=== PATIENT | male | born 1960 | race Caucasian/White ===

== ENCOUNTER → 2020-04-29 10:54 | Outpatient (BNVA) | payer BC, SELFPAY | PROVIDERS: Visit Provider Urology | DX: Z76.89 Persons encountering health services in other specified circumstances (principal) ==

== ENCOUNTER → 2020-10-28 09:41 | Outpatient (BNVA) | payer BC, SELFPAY | PROVIDERS: Visit Provider Urology | DX: R97.20 Elevated prostate specific antigen [PSA] (principal); N40.1 Benign prostatic hyperplasia with lower urinary tract symptoms; R39.12 Poor urinary stream; N13.8 Other obstructive and reflux uropathy; N52.9 Male erectile dysfunction, unspecified | CPT/HCPCS: 51798 ==

== ENCOUNTER → 2021-11-01 10:14 | Outpatient (BNVA) | payer BC, SELFPAY | PROVIDERS: Visit Provider Urology | DX: R97.20 Elevated prostate specific antigen [PSA] (principal); N40.1 Benign prostatic hyperplasia with lower urinary tract symptoms; N13.8 Other obstructive and reflux uropathy; R39.12 Poor urinary stream | CPT/HCPCS: 51798 ==

== ENCOUNTER → 2022-05-05 08:29 | Outpatient (BNVA) | payer BC, SELFPAY | PROVIDERS: Visit Provider Urology | DX: R97.20 Elevated prostate specific antigen [PSA] (principal) ==

== ENCOUNTER → 2022-11-10 13:46 | Outpatient (BNVA) | payer OTHER, SELFPAY | PROVIDERS: Visit Provider Nurse Practitioner Family | DX: N40.1 Benign prostatic hyperplasia with lower urinary tract symptoms (principal); N13.8 Other obstructive and reflux uropathy; R97.20 Elevated prostate specific antigen [PSA]; Z79.899 Other long term (current) drug therapy | CPT/HCPCS: 51798 ==

== ENCOUNTER 2023-03-02 06:06 | Outpatient (REF) | payer OTHER, SELFPAY | END 2023-03-02 06:07 | disposition home or self-care (01) | LOC: HO.LAB 06:06 | PROVIDERS: Visit Provider Urology | DX: R97.20 Elevated prostate specific antigen [PSA] (principal); N40.1 Benign prostatic hyperplasia with lower urinary tract symptoms; N13.8 Other obstructive and reflux uropathy; Z12.5 Encounter for screening for malignant neoplasm of prostate | CPT/HCPCS: 36415; 84153 ==

== ENCOUNTER 2023-03-07 09:29 | Outpatient (AMB) | payer OTHER, SELFPAY ==
--- NOTE | 2023-03-07 09:49 | MHC.OFFVIS ---
Intake Intake Visit Reasons: 4m/labs Intake Note: Patient is present for follow up Elevated PSA/labs (psa 6.70) Urology Medications: Finasteride Blood Thinner: none Disc Pad Grinding Machine Feeder Required: No Accompanied by: Self / Same As Patient Allergies aspirin Allergy (Mild, Verified 03/07/23 18:11) swelling Medication List - Last Reconciled 03/07/23 by KELLEN TamP- amlodipine 2.5 mg PO DAILY atorvastatin 80 mg PO DAILY bisoprolol fumarate 10 mg PO DAILY ezetimibe 10 mg PO DAILY finasteride 5 mg PO DAILY fluoxetine 20 mg PO DAILY levothyroxine 50 mcg PO DAILY metformin ER 2,000 mg PO DAILY pioglitazone 45 mg PO DAILY valsartan 320 mg PO DAILY HPI HPI Comments History of Present Illness Details Flynn is a pleasant 62-year-old male patient. He has a past medical history of hypertension, diabetes, and hypothyroidism. He presents to the office today for follow-up of his elevated PSA and BPH with weak stream. In discussion with the patient today reports to be doing and feeling well. When asked patient reports compliance with finasteride 5 mg daily. Recent PSA results reviewed with the patient today. PSA 03/05--6.7. Discussed at length potential causes for elevated PSA. Discussed elevated PSA in the setting of compliance with 5 mg of finasteride daily. Discussed recommendations for prostate biopsy versus surveillance monitoring. Discussed risks and benefits of surveillance monitoring verses prostate biopsy. He otherwise denies any urinary issues or concerns at this time. He reports to be happy with his current voiding parameters. When asked he denies urinary urgency, urinary frequency, incontinence, nocturia, hematuria, dysuria, foul smelling urine, changes to urinary stream, flank pain, fever, and or chills. RONI offered however deferred. In office urinalysis results reviewed with the patient today. Elevated PSA/Abnormal RONI: He presents for further evaluation of elevated PSA and lower urinary tract symptoms Current management is medication with 5AR Laboratory investigations include 12/30 , a free and total PSA evaluation - 5.5 F 21% 01/30 4.9, 24%, 10/31 PSA 3.4, 05/02 3.3, 11/01 2.1, 11/02 3.1, 05/04 3.5, 11/03 3.4, 03/05--6.7 Imaging investigations include a transrectal ultrasound Good voiding, 70 cc prostate December 2018 Individualized Prostate Cancer Risk Calculator Brother with large prostate and symptoms , 5-10% high risk, Discussed use of 5AR to help differentiate prostate cancer from benign disease. He would like to try this and understands the small risk associated with a delay in diagnosis, Discussion regarding TRUS biopsy performed. Symptoms include 12/30 , incomplete emptying, intermittency, weak stream, and are worsening. - 05/02 - good stream, minimal nocturia, happy with current situation Overall symptoms are moderate. Associated conditions diabetes No dyslipidemia Yes dysuria No erectile dysfunction No hematuria No hypertension No prostatitis No renal insufficieny No urinary retention No urinary tract infections No Therapeutic plan will be to schedule for prostate biospy. [facility] Medical History Enlarged prostate Thyroid disease Nocturia Elevated PSA Review of Systems Const Reports as per HPI Eyes Reports no additional complaints ENT Reports no additional complaints Card Reports as per HPI Resp Reports no additional complaints GI Reports no additional complaints Reports as per HPI Musc Reports no additional complaints Neuro Reports no additional complaints Psych Reports no additional complaints Endo Reports as per HPI Fer/Lymph Reports no additional complaints Aller/Immun Reports no additional complaints Physical Exam Const General: cooperative, comfortable, no acute distress, well developed, alert and awake Orientation/consciousness: patient oriented x3 HEENT Head: Yes normal to inspection, Yes normocephalic and Yes atraumatic Ears: hearing grossly normal bilaterally Eyes General: appearance normal, both eyes and all related structures Neck Neck: Yes normal visual inspection and Yes trachea midline Chest Chest palpation & inspection: normal inspection of the chest Resp Effort & Inspection: normal respiratory effort and able to speak in complete sentences Cardio Rate: regular rate GI Inspection: Yes normal to inspection Rectal Exam - Male: Yes deferred General: Yes no CVA tenderness Back/Spine/Pelvis Back: no CVA tenderness Skin General skin exam: no rashes or lesions noted Neuro General: patient oriented x3 Extrem General: Yes normal to inspection Psych Appearance: grossly normal and well kempt Mental Status: mental status grossly normal Speech and movement: Normal speech and movement present and Clear speech present Affect: normal affect Attitude: cooperative Thought process: Normal thought process present Thought content: Normal thought content present Insight: Fair insight present (Psych) Judgement: Fair judgement present (Psych) Results AMB Urinalysis, Automated UA Leukoctes 0 Zak/uL Last Edit by Ambika Costa on 03/07/23 10:09 UA Nitrite Negative Last Edit by Ambika Costa on 03/07/23 10:09 UA Urobilinogen 0.2 mg/dL Last Edit by Ambika Costa on 03/07/23 10:09 UA Protein 15 mg/dL Last Edit by Ambika Costa on 03/07/23 10:09 UA pH 5.5 Last Edit by Ambika Costa on 03/07/23 10:09 UA Blood 0 Yobani/uL Last Edit by Ambika Costa on 03/07/23 10:09 UA Specific [place] 1.030 Last Edit by Ambika Costa on 03/07/23 10:09 UA Ketone Positive Last Edit by Ambika Costa on 03/07/23 10:09 UA Bilirubin 0 mg/dL Last Edit by Ambika Costa on 03/07/23 10:09 UA Glucose 0 mg/dL Last Edit by Ambika Costa on 03/07/23 10:09 Results Reviewed Results Reviewed: Laboratory Last Values Urine pH (Auto) 5.5 03/07/23 09:51 Specific [place] (Auto) 1.030 03/07/23 09:51 Urine Protein (Auto) 15 mg/dL 03/07/23 09:51 Glucose (UA)(Auto) 0 mg/dL 03/07/23 09:51 Urine Ketones (Auto) Positive 03/07/23 09:51 Urine Blood (Auto) 0 Yobani/uL 03/07/23 09:51 Urine Nitrite (Auto) Negative 03/07/23 09:51 Urine Bilirubin (Auto) 0 mg/dL 03/07/23 09:51 Urine Urobilinogen (Auto) 0.2 mg/dL 03/07/23 09:51 Leukocyte Esterase (Auto) 0 Zak/uL 03/07/23 09:51 Assessment & Plan Assessment & Plan (1) Elevated PSA: Code(s): R97.20 - Elevated prostate specific antigen [PSA] (2) Erectile dysfunction: Code(s): N52.9 - Male erectile dysfunction, unspecified (3) BPH w urinary obs/LUTS: Code(s): N40.1 - Benign prostatic hyperplasia with lower urinary tract symptoms; N13.8 - Other obstructive and reflux uropathy Plan: Plan Risks and benefits regarding trans rectal ultrasound with prostate biopsy were discussed.? Options of continued surveillance, no treatment and biopsy were offered. The risks include but are not limited to, urinary tract infection, sepsis, difficulty urinating, bleeding into the rectum or bladder that requires intervention and transfusion,and failure to diagnose prostate cancer. The patient understands the options and the risks involved. They wish to proceed. Printed information was provided to ensure he remains off anticoagulation for the appropriate length of time. He may require cardiology or PCP clearance.? An antibiotic will be administered prior to, and following the procedure Plan In office urinalysis results reviewed with the patient today. Recent PSA results reviewed with the patient today. Continue finasteride as discussed and prescribed. Discussed at length potential causes for elevated PSA. Discussed at length risks and benefits of surveillance monitoring versus prostate biopsy. Patient denies any bothersome urinary issues or concerns at this time. Patient reports be happy with current voiding parameters. Discussed antibiotics day before, day of, and day after surgical procedure; prescription provided. Will schedule for prostate biopsy with Dr. Azul as discussed Follow-up status post prostate biopsy per Dr. Azul's order; or sooner with any issues, concerns, and or questions. Orders: Orders AMB Urinalysis Automated Today Z13.9 - Encounter for screening, unspecified Patient Instructions: The patient had an opportunity to ask questions regarding the treatment plan. All questions were answered. Physical exam, labs, and imaging were discussed and reviewed in detail. As well as risks, benefits, and discussion of treatment choices. No major barriers to understanding were identified. The patient expressed understanding and agreement with the above treatment plan. The patient was made aware they should contact our office by phone for worsening of their current condition, the appearance of new symptoms, or with any questions or concerns. Compliance is encouraged with any medications and follow up testing that is ordered. It is a privilege to be allowed the opportunity to participate in? your urological care.? Again, if you have any questions or concerns If you have any questions or concerns please do not hesitate to contact me. The office is [phone]. This note is constructed using voice recognition software. 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 Yours sincerely, Layla Madera, [employer] Coding Level of Care Code Est Pt Level 4 (47470) Diagnoses Elevated PSA R97.20 Erectile dysfunction N52.9 BPH w urinary obs/LUTS N40.1; N13.8
== END 2023-03-07 10:34 | disposition home or self-care (01) ==
PROVIDERS: Visit Provider Nurse Practitioner Family
DX: R97.20 Elevated prostate specific antigen [PSA] (principal); N52.9 Male erectile dysfunction, unspecified; N40.1 Benign prostatic hyperplasia with lower urinary tract symptoms; N13.8 Other obstructive and reflux uropathy; Z13.9 Encounter for screening, unspecified
CPT/HCPCS: 99214

== ENCOUNTER → 2023-03-07 09:29 | Outpatient (BNVA) | payer OTHER, SELFPAY | PROVIDERS: Visit Provider Nurse Practitioner Family | DX: R97.20 Elevated prostate specific antigen [PSA] (principal); N40.1 Benign prostatic hyperplasia with lower urinary tract symptoms; N13.8 Other obstructive and reflux uropathy; N52.9 Male erectile dysfunction, unspecified | CPT/HCPCS: 81003 ==

== ENCOUNTER 2023-04-10 07:15 | Outpatient (REF) | payer OTHER, SELFPAY ==
[2023-04-10 07:41] VITALS: BMI 25.5
[2023-04-10 07:43] VITALS: BP 162/78; RESP 99; TEMP 36.8; O2SAT 100
--- NOTE | 2023-04-10 08:21 | W.PM.OPN ---
Operative Note Operative Note Date of Service: 04/10/23 Narrative: Preoperative diagnosis: Elevated PSA Postoperative diagnosis: Elevated PSA Procedure: 1. transrectal ultrasound measurement of prostate 2. transrectal ultrasound-guided pudendal nerve block 3. transrectal ultrasound-guided prostate biopsy 12 core Surgeon: Dr. Atif Azul Anesthetic: Local Indications for procedure: Elevated PSA 6.7 on 5AR Procedure: After informed consent was verified, the patient was brought into the procedure area and lay left-hand side down on the table. Patient identity confirmed. Perioperative antibiotics confirmed. Safety pause time out performed. RONI performed to dilate rectal sphincter Iodine 10cc with Gel was placed per rectum Ultrasound probe was placed per rectum The prostate was measured in 3 dimensions Total volume equals 40 gm No cystic structures were noted No calcifications were noted at the surgical margin The prostate was otherwise homogeneous in nature An ultrasound-guided pudendal nerve block was performed using 10 cc of 1% lidocaine. 8 cc was placed at the base and 2 cc of the apex. A 12 core biopsy was performed with 6 cores each side. Two cores were taken at the apex, mid and base. Cores were spaced between lateral and medial. He tolerated the procedure well. Was able to ambulate to bathroom after 5 minutes. Printed instructions regarding antibiotic use and common side effects such as low-grade temperature, potential infection and bleeding were given Pathology: 12 core prostate biopsy.
[2023-04-10 08:43] VITALS: BP 138/75; PULSE 104; RESP 16; O2SAT 99
== END 2023-04-10 07:16 | disposition home or self-care (01) ==
LOC: HO.MS 07:15
PROVIDERS: Visit Provider Urology
PROC: (CPT 55700; principal; 2023-04-10 08:00)
DX: R97.20 Elevated prostate specific antigen [PSA] (principal)
CPT/HCPCS: 55700; 76942; 88305

== ENCOUNTER → 2023-04-10 07:15 | Outpatient (BNV) | payer OTHER, SELFPAY | PROVIDERS: Visit Provider Urology | DX: R97.20 Elevated prostate specific antigen [PSA] (principal) | CPT/HCPCS: 55700; 76942 ==

== ENCOUNTER 2023-04-25 13:30 | Outpatient (AMB) | payer OTHER, SELFPAY ==
--- NOTE | 2023-04-25 13:31 | MHC.OFFVIS ---
Intake Intake Visit Reasons: Bx results Intake Note: Patient is present for telephone Biopsy Results Allergies aspirin Allergy (Mild, Verified 03/07/23 18:11) swelling HPI HPI Comments History of Present Illness Details Beau is a pleasant male. He is a patient Dr. Corona. He seen for the following urologic conditions - lower urinary tract symptoms - elevated PSA Telemedicine Evaluation 15 min Consultation [employer] Laura Video attmepted Discussed prostate biopsy Size approximately 50 cc on finasteride Biopsy reported as normal Continue with daily finasteride repeat PSA 6 months Elevated PSA/Abnormal RONI: He presents for further evaluation of elevated PSA and lower urinary tract symptoms Current management is medication with 5AR Laboratory investigations include 12/30 , a free and total PSA evaluation - 5.5 F 21% 01/30 4.9, 24%, 10/31 PSA 3.4, 05/02 3.3, 11/01 2.1, 11/02 3.1, 05/04 3.5, 11/03 3.4, 03/05--6.7 Imaging investigations include a transrectal ultrasound Good voiding, 70 cc prostate December 2018 Individualized Prostate Cancer Risk Calculator Brother with large prostate and symptoms , 5-10% high risk, Discussed use of 5AR to help differentiate prostate cancer from benign disease. He would like to try this and understands the small risk associated with a delay in diagnosis, Discussion regarding TRUS biopsy performed. Symptoms include 12/30 , incomplete emptying, intermittency, weak stream, and are worsening. - 05/02 - good stream, minimal nocturia, happy with current situation Overall symptoms are moderate. urinary tract infections No Therapeutic plan will be to continue finasteride [facility] Medical History Enlarged prostate Thyroid disease Nocturia Elevated PSA Review of Systems Const All systems reviewed & are unremarkable except as noted in HPI and below Reports no additional complaints Resp Reports no additional complaints GI Reports no additional complaints Reports as per HPI Musc Reports no additional complaints Physical Exam Telemedicine evaluation Appropriate responses Regular breathing rate and rhythm HEENT Head: Yes normal to inspection Ears: hearing grossly normal bilaterally Eyes General: appearance normal, both eyes and all related structures Neck Neck: Yes normal visual inspection Chest Chest palpation & inspection: normal inspection of the chest Resp Effort & Inspection: normal respiratory effort and able to speak in complete sentences Assessment & Plan Assessment & Plan (1) Elevated PSA: Code(s): R97.20 - Elevated prostate specific antigen [PSA] (2) Erectile dysfunction: Code(s): N52.9 - Male erectile dysfunction, unspecified (3) BPH w urinary obs/LUTS: Code(s): N40.1 - Benign prostatic hyperplasia with lower urinary tract symptoms; N13.8 - Other obstructive and reflux uropathy Plan Continue finasteride PSA surveillance Orders: Orders PSA,Total (Free>4and<10) 6 Months R97.20 - Elevated prostate specific antigen [PSA] Patient Instructions: Imaging studies, laboratory and physical exam results were discussed and reviewed in detail. No major barriers to patient understanding were identified. An opportunity to ask questions regarding the treatment plan was provided. All questions were answered. The patient expressed understanding and agreement with the above treatment plan. The patient is aware they should contact our office by phone for worsening of their current condition or the appearance of new urologic symptoms. Compliance is encouraged with any medications and followup testing that is ordered. It is a privilege to participate in the urologic care of your patient. If you have any questions or concerns regarding treatment for the above conditions, or other urologic issues, please do not hesitate to contact me. The office telephone contact is [phone]. This note is constructed using voice recognition software. While every effort has been made to ensure accuracy converting supervisor errors may have been included. Yours sincerely, Dr Atif Azul MD, [facility] - Urology Providers of Expert, Compassionate Care for the Genitourinary System Telehealth Telehealth Location of provider rendering services: practice address Location of patient: address on file Patient Identification confirmed using: Name, : Yes Telehealth method: video Patient verbally consented to treatment: Yes Patient verbally consented to billing insurance company: Yes Patient informed of any privacy concerns related to visit: Yes Coding Level of Care Code Tele Est Pt Level 3 (41499) Diagnoses Elevated PSA R97.20 Erectile dysfunction N52.9 BPH w urinary obs/LUTS N40.1; N13.8
== END 2023-04-25 13:54 | disposition home or self-care (01) ==
LOC: HO.HUSH 13:30
PROVIDERS: Visit Provider Urology
DX: R97.20 Elevated prostate specific antigen [PSA] (principal); N52.9 Male erectile dysfunction, unspecified; N40.1 Benign prostatic hyperplasia with lower urinary tract symptoms; N13.8 Other obstructive and reflux uropathy
CPT/HCPCS: 99213

== ENCOUNTER → 2023-04-25 13:30 | Outpatient (BNVA) | payer OTHER, SELFPAY | PROVIDERS: Visit Provider Urology ==

== ENCOUNTER 2023-10-19 06:57 | Outpatient (REF) | payer OTHER, SELFPAY ==
[2023-10-19 08:56] LABS: PSA,Total (Free>4and<10) 2.43 ng/mL (0.00-4.00)
== END 2023-10-19 06:58 | disposition home or self-care (01) ==
LOC: HO.LAB 06:57
PROVIDERS: Visit Provider Urology
DX: R97.20 Elevated prostate specific antigen [PSA] (principal); Z12.5 Encounter for screening for malignant neoplasm of prostate
CPT/HCPCS: 36415; 84153

== ENCOUNTER 2023-10-24 13:53 | Outpatient (AMB) | payer OTHER, SELFPAY ==
--- NOTE | 2023-10-24 13:54 | A.OFFVIS_ITS ---
Intake Visit Reasons: 6m/PSA(set) Intake Note: Patient is Present for Telephone Follow Up For Urology Med: Finasteride Antibiotic Allergy: None Blood Thinner: None Allergies aspirin Allergy (Mild, Verified 10/24/23 13:55) swelling HPI Comments Details: Beau is a pleasant male. He is a patient Dr. Corona. He seen for the following urologic conditions - lower urinary tract symptoms - elevated PSA Telemedicine Evaluation 15 min Consultation [employer] Laura Video Continue with daily finasteride repeat PSA 6 months PSA has fallen precipitously to 2.4 Would continue to follow q.6 months Elevated PSA/Abnormal RONI: He presents for further evaluation of elevated PSA and lower urinary tract symptoms Current management is medication with 5AR Laboratory investigations include 12/30 , a free and total PSA evaluation - 5.5 F 21% 01/30 4.9, 24%, 10/31 PSA 3.4, 05/02 3.3, 11/01 2.1, 11/02 3.1, 05/04 3.5, 11/03 3.4, 03/05--6.7, 11/04 2.4 Imaging investigations include a transrectal ultrasound Good voiding, 70 cc prostate December 2018 Individualized Prostate Cancer Risk Calculator Brother with large prostate and symptoms , 5-10% high risk, Discussed use of 5AR to help differentiate prostate cancer from benign disease. He would like to try this and understands the small risk associated with a delay in diagnosis, Discussion regarding TRUS biopsy performed. Symptoms include 12/30 , incomplete emptying, intermittency, weak stream, and are worsening. - 05/02 - good stream, minimal nocturia, happy with current situation Overall symptoms are moderate. urinary tract infections No Therapeutic plan will be to continue finasteride [facility] Medical History Enlarged prostate Thyroid disease Nocturia Elevated PSA Review of Systems Const All systems reviewed & are unremarkable except as noted in HPI and below Denies chills and Denies fever(s) Card Reports no additional complaints and Denies syncope Resp Denies cough GI Denies abdominal pain and Denies heartburn Reports as per HPI and Denies change in libido Musc Reports no additional complaints Neuro Denies syncope Psych Denies change in libido Endo Denies change in libido Physical Exam Telemedicine evaluation Appropriate responses Regular breathing rate and rhythm HEENT Head: Yes normal to inspection Ears: hearing grossly normal bilaterally Eyes General: appearance normal, both eyes and all related structures Neck Neck: Yes normal visual inspection Chest Chest palpation & inspection: normal inspection of the chest Resp Effort & Inspection: normal respiratory effort and able to speak in complete sentences Telehealth Telehealth Location of provider rendering services: practice address Location of patient: address on file Patient Identification confirmed using: Name, : Yes Telehealth method: voice only Patient verbally consented to treatment: Yes Patient verbally consented to billing insurance company: Yes Patient informed of any privacy concerns related to visit: Yes Assessment & Plan Assessment & Plan (1) BPH w urinary obs/LUTS: Code(s): N40.1 - Benign prostatic hyperplasia with lower urinary tract symptoms; N13.8 - Other obstructive and reflux uropathy Category: Medical (2) Erectile dysfunction: Code(s): N52.9 - Male erectile dysfunction, unspecified Category: Medical (3) Elevated PSA: Code(s): R97.20 - Elevated prostate specific antigen [PSA] Category: Medical Plan Six-month follow-up labs, office Orders: Orders Prostate Specific Antigen 6 Months R97.20 - Elevated prostate specific antigen [PSA] Testosterone, Total 6 Months N52.9 - Male erectile dysfunction, unspecified Patient Instructions: Imaging studies, laboratory and physical exam results were discussed and reviewed in detail. No major barriers to patient understanding were identified. An opportunity to ask questions regarding the treatment plan was provided. All q uestions were answered. The patient expressed understanding and agreement with the above treatment plan. The patient is aware they should contact our office by phone for worsening of their current condition or the appearance of new urologic symptoms. Compliance is encouraged with any medications and followup testing that is ordered. It is a privilege to participate in the urologic care of your patient. If you have any questions or concerns regarding treatment for the above conditions, or other urologic issues, please do not hesitate to contact me. The office telephone contact is [phone]. This note is constructed using voice recognition software. While every effort has been made to ensure accuracy beef cattle farm worker errors may have been included. Yours sincerely, Dr Atif Azul MD, [facility] - Urology Providers of Expert, Compassionate Care for the Genitourinary System Coding Level of Care Code Tele Est Pt Level 3 (55862) Diagnoses BPH w urinary obs/LUTS N40.1; N13.8 Erectile dysfunction N52.9 Elevated PSA R97.20
== END 2023-10-24 14:42 | disposition home or self-care (01) ==
LOC: HO.HUSH 13:53
PROVIDERS: Visit Provider Urology
DX: N40.1 Benign prostatic hyperplasia with lower urinary tract symptoms (principal); N13.8 Other obstructive and reflux uropathy; N52.9 Male erectile dysfunction, unspecified; R97.20 Elevated prostate specific antigen [PSA]
CPT/HCPCS: 99213

== ENCOUNTER → 2023-10-24 13:53 | Outpatient (BNVA) | payer OTHER, SELFPAY | PROVIDERS: Visit Provider Urology ==

== ENCOUNTER 2024-05-27 09:34 | Outpatient (REF) | payer OTHER, SELFPAY ==
[2024-05-27 10:37] LABS: Prostate Specific Antigen 3.96 ng/mL (<0.05-4.0)
[2024-05-31 00:44] LABS: Testosterone, Total 135 ng/dL (250-1100)
== END 2024-05-27 09:35 | disposition home or self-care (01) ==
LOC: HO.LAB 09:34
PROVIDERS: PCP Nurse Practitioner Family; Visit Provider Urology
DX: R97.20 Elevated prostate specific antigen [PSA] (principal); N52.9 Male erectile dysfunction, unspecified; Z12.5 Encounter for screening for malignant neoplasm of prostate
CPT/HCPCS: 36415; 84153; 84403

== ENCOUNTER 2024-05-30 14:34 | Outpatient (AMB) | payer OTHER, SELFPAY ==
--- NOTE | 2024-05-30 14:46 | MHC.OFFVIS ---
Intake Visit Reasons: 6m follow up labs Intake Note: Patient is present for 6M F/U LABS Urology Medication:FINASTERIDE Antibiotic Allergy:NONE Blood Thinner:NONE Medical Device Sales Consultant Required: No Allergies aspirin Allergy (Mild, Verified 05/30/24 14:47) swelling HPI Comments Details: Beau is a pleasant male. He is a patient Dr. Corona. He seen for the following urologic conditions - lower urinary tract symptoms - elevated PSA PSA slight bounce 2.4 to 3.9 Repeat six-month If continues to rise would performed biopsy Continue with daily finasteride repeat PSA 6 months PSA has fallen precipitously to 2.4 Would continue to follow q.6 months Elevated PSA/Abnormal RONI: He presents for further evaluation of elevated PSA and lower urinary tract symptoms Current management is medication with 5AR Laboratory investigations include 12/30 , a free and total PSA evaluation - 5.5 F 21% 01/30 4.9, 24%, 10/31 PSA 3.4, 05/02 3.3, 11/01 2.1, 11/02 3.1, 05/04 3.5, 11/03 3.4, 03/05--6.7, 11/04 2.4 Imaging investigations include a transrectal ultrasound Good voiding, 70 cc prostate December 2018 Individualized Prostate Cancer Risk Calculator Brother with large prostate and symptoms , 5-10% high risk, Discussed use of 5AR to help differentiate prostate cancer from benign disease. He would like to try this and understands the small risk associated with a delay in diagnosis, Discussion regarding TRUS biopsy performed. Symptoms include 12/30 , incomplete emptying, intermittency, weak stream, and are worsening. - 05/02 - good stream, minimal nocturia, happy with current situation Overall symptoms are moderate. urinary tract infections No Therapeutic plan will be to continue finasteride [facility] Medical History Enlarged prostate Thyroid disease Nocturia Elevated PSA Review of Systems Const Denies chills and Denies fever(s) Card Reports no additional complaints and Denies syncope Resp Denies cough GI Denies abdominal pain and Denies heartburn Reports as per HPI and Denies change in libido Neuro Denies syncope Psych Denies change in libido Endo Denies change in libido Physical Exam Const General: cooperative, healthy appearing, comfortable and no acute distress Orientation/consciousness: patient oriented x3 HEENT Face and sinus: Yes normal facial exam Mouth: moist mucous membranes Neck Neck: Yes normal visual inspection, Yes full ROM and Yes trachea midline Chest Chest palpation & inspection: normal inspection of the chest Resp Effort & Inspection: normal respiratory effort, able to speak in complete sentences and no respiratory distress GI Inspection: Yes normal to inspection Back/Spine/Pelvis Cervical Spine: normal cervical lordosis Thoracic/Lumbar Spine: thoracic and lumbar spine normal to inspection Skin General skin exam: no rashes or lesions noted Neuro General: patient oriented x3, gait normal, tone normal and moves all extremities Extrem General: Yes normal to inspection and Yes capillary refill normal Results AMB Urinalysis, Automated UA Leukoctes 15 Zak/uL Last Edit by BRONWYN Garcia on 05/30/24 14:55 UA Nitrite Negative Last Edit by Marie Cortez CCM on 05/30/24 14:55 UA Urobilinogen 0.2 mg/dL Last Edit by BRONWYN Garcia on 05/30/24 14:55 UA Protein 15 mg/dL Last Edit by Marie Cortez CCM on 05/30/24 14:55 UA pH 5.5 Last Edit by Marie Cortez CCM on 05/30/24 14:55 UA Blood 0 Yobani/uL Last Edit by Marie Cortez CCM on 05/30/24 14:55 UA Specific [place] 1.025 Last Edit by Marie Cortez CCM on 05/30/24 14:55 UA Ketone Positive Last Edit by BRONWYN Garcia on 05/30/24 14:55 UA Bilirubin 0 mg/dL Last Edit by Marie Cortez CCM on 05/30/24 14:55 UA Glucose 0 mg/dL Last Edit by Marie Cortez CCM on 05/30/24 14:55 Results Reviewed Results Reviewed: Laboratory Last Values Urine pH (Auto) 5.5 05/30/24 14:54 Specific [place] (Auto) 1.025 05/30/24 14:54 Urine Protein (Auto) 15 mg/dL 05/30/24 14:54 Glucose (UA)(Auto) 0 mg/dL 05/30/24 14:54 Urine Ketones (Auto) Positive 05/30/24 14:54 Urine Blood (Auto) 0 Yobani/uL 05/30/24 14:54 Urine Nitrite (Auto) Negative 05/30/24 14:54 Urine Bilirubin (Auto) 0 mg/dL 05/30/24 14:54 Urine Urobilinogen (Auto) 0.2 mg/dL 05/30/24 14:54 Leukocyte Esterase (Auto) 15 Zak/uL 05/30/24 14:54 Assessment & Plan Assessment & Plan (1) BPH w urinary obs/LUTS: Code(s): N40.1 - Benign prostatic hyperplasia with lower urinary tract symptoms; N13.8 - Other obstructive and reflux uropathy Category: Medical (2) Erectile dysfunction: Code(s): N52.9 - Male erectile dysfunction, unspecified Category: Medical (3) Elevated PSA: Code(s): R97.20 - Elevated prostate specific antigen [PSA] Category: Medical Plan Four month follow-up Orders: Orders AMB Urinalysis Automated Today Z13.9 - Encounter for screening, unspecified PSA,Total (Free>4and<10) 4 Months R97.20 - Elevated prostate specific antigen [PSA] Patient Instructions: Imaging studies, laboratory and physical exam results were discussed and reviewed in detail. No major barriers to patient understanding were identified. An opportunity to ask questions regarding the treatment plan was provided. All questions were answered. The patient expressed understanding and agreement with the above treatment plan. The patient is aware they should contact our office by phone for worsening of their current condition or the appearance of new urologic symptoms. Compliance is encouraged with any medications and followup testing that is ordered. It is a privilege to participate in the urologic care of your patient. If you have any questions or concerns regarding treatment for the above conditions, or other urologic issues, please do not hesitate to contact me. The office telephone contact is [phone]. This note is constructed using voice recognition software. While every effort has been made to ensure accuracy repair operator errors may have been included. Yours sincerely, Dr Atif Azul MD, [facility] - Urology Providers of Expert, Compassionate Care for the Genitourinary System Coding Level of Care Code Est Pt Level 3 (05589) Diagnoses BPH w urinary obs/LUTS N40.1; N13.8 Erectile dysfunction N52.9 Elevated PSA R97.20
== END 2024-05-30 15:59 | disposition home or self-care (01) ==
PROVIDERS: Visit Provider Urology
DX: N40.1 Benign prostatic hyperplasia with lower urinary tract symptoms (principal); N13.8 Other obstructive and reflux uropathy; N52.9 Male erectile dysfunction, unspecified; R97.20 Elevated prostate specific antigen [PSA]; Z13.9 Encounter for screening, unspecified
CPT/HCPCS: 99213

== ENCOUNTER → 2024-05-30 14:34 | Outpatient (BNVA) | payer OTHER, SELFPAY | PROVIDERS: Visit Provider Urology | DX: N40.1 Benign prostatic hyperplasia with lower urinary tract symptoms (principal); N13.8 Other obstructive and reflux uropathy; N52.9 Male erectile dysfunction, unspecified; R97.20 Elevated prostate specific antigen [PSA] | CPT/HCPCS: 81003 ==

== ENCOUNTER 2024-09-24 06:08 | Outpatient (REF) | payer OTHER, SELFPAY ==
[2024-09-24 08:12] LABS: PSA,Total (Free>4and<10) 2.75 ng/mL (0.00-4.00)
== END 2024-09-24 06:09 | disposition home or self-care (01) ==
LOC: HO.LAB 06:08
PROVIDERS: PCP Nurse Practitioner Family; Visit Provider Urology
DX: R97.20 Elevated prostate specific antigen [PSA] (principal); Z12.5 Encounter for screening for malignant neoplasm of prostate
CPT/HCPCS: 36415; 84153

== ENCOUNTER 2024-09-26 13:09 | Outpatient (AMB) | payer OTHER, SELFPAY ==
--- NOTE | 2024-09-26 13:09 | A.OFFVIS_ITS ---
Intake Visit Reasons: 4m/PSA Intake Note: Patient is present for 4M/PSA Urology Medication:FINASTERIDE Antibiotic Allergy:NONE Blood Thinner:NONE Talk Show Host Required: No Allergies aspirin Allergy (Mild, Verified 09/26/24 13:10) swelling HPI Comments Details: Beau is a pleasant male. He is a patient Dr. Corona. He seen for the following urologic conditions - lower urinary tract symptoms - elevated PSA Telemedicine Evaluation 15 min Consultation [employer] Laura Video PSA 10/05 2.8 Testosterone 06/07 135 - in setting of diabetes Obtain full testosterone panel 4 week follow-up labs Elevated PSA/Abnormal RONI: He presents for further evaluation of elevated PSA and lower urinary tract symptoms Current management is medication with 5AR Laboratory investigations include 12/30 , a free and total PSA evaluation - 5.5 F 21% 01/30 4.9, 24%, 10/31 PSA 3.4, 05/02 3.3, 11/01 2.1, 11/02 3.1, 05/04 3.5, 11/03 3.4, 03/05--6.7, 11/04 2.4, 05/06 3.9 T 135 Imaging investigations include a transrectal ultrasound Good voiding, 70 cc prostate December 2018 Individualized Prostate Cancer Risk Calculator Brother with large prostate and symptoms , 5-10% high risk, Discussed use of 5AR to help differentiate prostate cancer from benign disease. He would like to try this and understands the small risk associated with a delay in diagnosis, Discussion regarding TRUS biopsy performed. Symptoms include 12/30 , incomplete emptying, intermittency, weak stream, and are worsening. - 05/02 - good stream, minimal nocturia, happy with current situation Overall symptoms are moderate. urinary tract infections No Therapeutic plan will be to continue finasteride [facility] Medical History Enlarged prostate Thyroid disease Nocturia Elevated PSA Review of Systems Const All systems reviewed & are unremarkable except as noted in HPI and below Reports no additional complaints Resp Reports no additional complaints GI Reports no additional complaints Reports as per HPI Musc Reports no additional complaints Physical Exam Telemedicine evaluation Appropriate responses Regular breathing rate and rhythm HEENT Head: Yes normal to inspection Ears: hearing grossly normal bilaterally Eyes General: appearance normal, both eyes and all related structures Neck Neck: Yes normal visual inspection Chest Chest palpation & inspection: normal inspection of the chest Resp Effort & Inspection: normal respiratory effort and able to speak in complete sentences Telehealth Telehealth Location of provider rendering services: practice address Location of patient: address on file Patient Identification confirmed using: Name, : Yes Telehealth method: voice only Patient verbally consented to treatment: Yes Patient verbally consented to billing insurance company: Yes Patient informed of any privacy concerns related to visit: Yes Assessment & Plan Assessment & Plan (1) Hypogonadism in male: Code(s): E29.1 - Testicular hypofunction Category: Medical (2) BPH w urinary obs/LUTS: Code(s): N40.1 - Benign prostatic hyperplasia with lower urinary tract symptoms; N13.8 - Other obstructive and reflux uropathy Category: Medical (3) Elevated PSA: Code(s): R97.20 - Elevated prostate specific antigen [PSA] Category: Medical Plan Lab work Four week follow-up tele Orders: Orders Prolactin Today E29.1 - Testicular hypofunction TSH reflex Free T4 Today E29.1 - Testicular hypofunction Lutenizing Hormone Today E29.1 - Testicular hypofunction IRON PROFILE Today E29.1 - Testicular hypofunction Follicle Stimulating Hormone Today E29.1 - Testicular hypofunction Testosterone, Free/Total Today E29.1 - Testicular hypofunction Sex Hormone Binding Globulin Today E29.1 - Testicular hypofunction Estradiol Ultra Sensitive Today E29.1 - Testicular hypofunction Patient Instructions: This note is constructed using voice recognition software. While every effort has been made to ensure accuracy acid conditioner errors may have been included. Imaging studies, laboratory and physical exam results were discussed and reviewed in detail. No major barriers to patient understanding were identified. An opportunity to ask questions regarding the treatment plan was provided. All questions were answered. The patient expressed understanding and agreement with the above treatment plan. The patient is aware they should contact our office by phone for worsening of their current condition or the appearance of new urologic symptoms. Compliance is encouraged with any medications and followup testing that is ordered. It is a privilege to participate in the urologic care of your patient. If you have any questions or concerns regarding treatment for the above conditions, or other urologic issues, please do not hesitate to contact me. The office telephone contact is [phone]. Sincerely, Dr Atif Azul MD, [facility] - Urology Compassionate Specialist Care for the Genitourinary System Coding Level of Care Code Tele Est Pt Level 3 (90005) Complex EM visit Add On G2211 Diagnoses Hypogonadism in male E29.1 BPH w urinary obs/LUTS N40.1; N13.8 Elevated PSA R97.20
== END 2024-09-26 13:36 | disposition home or self-care (01) ==
LOC: HO.HUSH 13:09
PROVIDERS: PCP Nurse Practitioner Family; Visit Provider Urology
DX: E29.1 Testicular hypofunction (principal); N40.1 Benign prostatic hyperplasia with lower urinary tract symptoms; N13.8 Other obstructive and reflux uropathy; R97.20 Elevated prostate specific antigen [PSA]
CPT/HCPCS: 99213

== ENCOUNTER → 2024-09-26 13:09 | Outpatient (BNVA) | payer OTHER, SELFPAY | PROVIDERS: PCP Nurse Practitioner Family; Visit Provider Urology ==